=== PATIENT | female | born 1995 | race Two or more races ===

== ENCOUNTER 2021-09-19 11:34 | Emergency (ER) | payer MEDICAID ==
[2021-09-19] MEDS ORDERED: Sodium Chloride 0.9% 1,000 ML IV ONE (11:47)
[2021-09-19] MEDS ORDERED: Famotidine 20 MG/2 ML SDV IVPUSH ONE (11:49)
[2021-09-19] MEDS ORDERED: Alum Hydro/Mag Hydro/Simeth XS 15 ML, Lidocaine 2% 5 ML PO ONE ×2 (11:49)
[2021-09-19] MEDS ORDERED: Morphine 4 MG/ML VIAL IVPUSH ONE (12:37)
[2021-09-19] MEDS ORDERED: Ondansetron 4 MG/2 ML SDV IVPUSH ONE ×2 (12:37→15:57)
[2021-09-19 12:41] LABS: BLOOD UREA NITROGEN,BUN 8 mg/dL (7.0-18.0); CARBON DIOXIDE,CO2 22.4 mmol/L (21.0-32.0); CHLORIDE,CL 102 mmol/L (98-107); GLUCOSE RANDOM 98 mg/dL (74-106); SODIUM,NA 136 mmol/L (136-145)
[2021-09-19] MEDS ORDERED: Iopamidol 755 MG/ML 500 ML Multipack Bottle IVPUSH STA (13:15)
[2021-09-19 13:30] LABS: LIPASE 28748 U/L (73-393)
[2021-09-19] MEDS ORDERED: Piperacillin/Tazobactam 3.375 GM in Sodium Chloride 0.9% 50 ML IV ONE (14:22)
[2021-09-19] MEDS ORDERED: HYDROmorphone 1 MG/ML Syringe IVPUSH ONE (15:57)
== END 2021-09-19 16:30 ==
LOC: MW.ED 11:34
DX: K80.50 Calculus of bile duct without cholangitis or cholecystitis without obstruction (principal); K85.10 Biliary acute pancreatitis without necrosis or infection; Z20.822 Contact with and (suspected) exposure to COVID-19
CPT/HCPCS: 36415; 71275; 74177; 80053; 83605; 83690; 83735; 84484; 84703; 85025; 85610; 85730; 87635; 93005; 96361; 96365; 96375; 99285; A9270; J1170; J2270; J2405; J2543; J3490; J7030; Q9967; 93010; 99291; U0002

== ENCOUNTER 2022-08-29 06:52 | Inpatient (IN) | payer MEDICAID ==
[2022-08-29] MEDS ORDERED: Sodium Chloride 0.9% 10 ML Syringe FLUSH PRN (07:58)
[2022-08-29] MEDS ORDERED: Sodium Chloride 0.9% 2.5 ML Syringe FLUSH PRN (07:58)
[2022-08-29] MEDS ORDERED: Water For Irrigation,Sterile 1,000 ML Container IRR PRN (07:58)
[2022-08-29] MEDS ORDERED: Tranexamic Acid 1,000 MG in Sodium Chloride 0.9% 100 ML IV PRN (07:58)
[2022-08-29] MEDS ORDERED: Misoprostol 200 MCG Tab PO PRN (07:58)
[2022-08-29] MEDS ORDERED: Lidocaine 1% 50 ML MDV INJECT PRN (07:58)
[2022-08-29] MEDS ORDERED: Sodium Chloride 0.9% 20 ML SDV IV PRN (07:58)
[2022-08-29] MEDS ORDERED: Carboprost Tromethamine 250 MCG/1 mL Vial IM PRN (07:58)
[2022-08-29] MEDS ORDERED: Methylergonovine 0.2 MG/1 ML Amp IM PRN (07:58)
[2022-08-29] MEDS ORDERED: Lactated Ringers 1,000 ML IV SCH (08:00)
[2022-08-29] MEDS ORDERED: Oxytocin/0.9 % Sodium Chloride 30 UNIT/500 ML BAG IV SCH ×2 (08:00→09:00)
[2022-08-29 08:12] LABS: HEMATOCRIT 37.5 % (36.0-46.0); HEMOGLOBIN 12.9 g/dL (12.0-16.0); MEAN CORPUSCULAR HEMOGLOBIN 30.2 pg (27.0-32.0); MEAN CORPUSCULAR HGB CONC 34.4 g/dL (31.0-37.0); MEAN CORPUSCULAR VOLUME 87.8 fL (80.0-98.0); MEAN PLATELET VOLUME 11.1 fL (7.40-12.00); RED BLOOD CELL COUNT 4.27 M/uL (4.30-5.90); WHITE BLOOD CELL COUNT,WBC 16.08 K/uL (4.0-11.0)
[2022-08-29] MEDS ORDERED: Terbutaline 1 MG/ML SDV SUBCUT PRN (08:49)
[2022-08-29] MEDS ORDERED: ePHEDrine 50 MG/ML SDV IVPUSH PRN ×2 (08:52)
[2022-08-29] MEDS ORDERED: Phenylephrine HCl 0.5 MG/5 ML AMP IVPUSH PRN (08:52)
[2022-08-29] MEDS ORDERED: Ropivacaine HCl/PF 400 MG in Premix Bag 1 BAG EPIDUR SCH (09:00)
[2022-08-29] MEDS: Butorphanol 1 MG/ML SDV IVPUSH PRN ×2 (09:56→11:09)
[2022-08-29] MEDS ORDERED: Aluminum Hydroxide/Magnesium Hydroxide/Simethicone XS Susp 30 ML Cup PO PRN (15:04)
[2022-08-29] MEDS ORDERED: Measles, Mumps & Rubella Vaccine 0.5 ML SDV SUBCUT ONE (15:04)
[2022-08-29] MEDS ORDERED: oxyCODONE 5 MG Tab PO PRN (15:04)
[2022-08-29] MEDS ORDERED: Lanolin 100% Cream 7 GM Tube TOP PRN (15:04)
[2022-08-29] MEDS ORDERED: Famotidine 20 MG Tab PO PRN (15:04)
[2022-08-29] MEDS ORDERED: Acetaminophen 500 MG Tab PO PRN (15:04)
[2022-08-29] MEDS ORDERED: Docusate Sodium 100 MG Cap PO PRN (15:04)
[2022-08-29] MEDS ORDERED: Bisacodyl 10 MG Supp RECTAL PRN (15:04)
[2022-08-29] MEDS ORDERED: Oxytocin 10 Units/1 ML SDV IM PRN (15:04)
[2022-08-29] MEDS ORDERED: Ibuprofen 800 MG Tab PO PRN (15:04)
[2022-08-29] MEDS ORDERED: Simethicone 80 MG Tab.Chew PO PRN (15:04)
[2022-08-29] MEDS: Witch Hazel Medicated Pads 40/Jar TOP PRN (17:19)
[2022-08-29] MEDS: Benzocaine/Menthol 20%-0.5% Spray 78 GM Cannister TOP PRN (17:19)
[2022-08-30 03:35] LABS: HEMATOCRIT 29.7 % (36.0-46.0); HEMOGLOBIN 10.3 g/dL (12.0-16.0)
[2022-08-30] MEDS: Benzocaine/Menthol 20%-0.5% Spray 78 GM Cannister TOP PRN (09:28)
[2022-08-30] MEDS: Witch Hazel Medicated Pads 40/Jar TOP PRN (09:28)
== END 2022-08-30 18:49 | disposition home or self-care (01) | DRG 807 ==
LOC: MW.OBCHECK 06:52 → MW.OB 06:53 → MW.OBCHECK 08:00 → MW.OB 08:01 → OBSVTOIN 14:23 → MW.OB 18:50
PROVIDERS: ADMIT Obstetrics & Gynecology; ATTEND Obstetrics & Gynecology
PROC: 10E0XZZ Delivery of Products of Conception, External Approach (ICD-10-PCS; principal; 2022-08-29)
PROC: 10907ZC Drainage of Amniotic Fluid, Therapeutic from Products of Conception, Via Natural or Artificial Opening (ICD-10-PCS; 2022-08-29)
PROC: 0KQM0ZZ Repair Perineum Muscle, Open Approach (ICD-10-PCS; 2022-08-29)
DX: O41.03X0 Oligohydramnios, third trimester, not applicable or unspecified (principal); Z37.0 Single live birth; O70.1 Second degree perineal laceration during delivery; O48.0 Post-term pregnancy; O99.214 Obesity complicating childbirth; Z3A.40 40 weeks gestation of pregnancy; Z90.49 Acquired absence of other specified parts of digestive tract; Z98.890 Other specified postprocedural states
CPT/HCPCS: 36415; 59409; 85014; 85018; 85027; 86592; 86850; 86900; 86901; A9270-GY; J0595; J2001; J2590; J7120

== ENCOUNTER 2023-07-13 07:45 | Emergency (ER) | payer MEDICAID ==
[2023-07-13 08:13] LABS: BASOPHILS ABSOLUTE AUTO 0.08 K/uL (0.00-0.20); BASOPHILS PERCENT AUTO 0.7 % (0.0-1.0); EOSINOPHILS ABSOLUTE AUTO 0.34 K/uL (0.00-0.45); EOSINOPHILS PERCENT AUTO 2.8 % (0.0-6.0); HEMATOCRIT 42.7 % (37.0-47.0); HEMOGLOBIN 14.7 g/dL (12.0-16.0); IMMATURE GRAN ABSOLUTE AUTO 0.02 K/uL (0.00-0.05); IMMATURE GRAN PERCENT AUTO 0.2 % (0.0-0.4); LYMPHOCYTES ABSOLUTE AUTO 3.26 K/uL (1.00-4.80); LYMPHOCYTES PERCENT AUTO 27.2 % (24.0-44.0); MEAN CORPUSCULAR HEMOGLOBIN 29.9 pg (28.0-32.0); MEAN CORPUSCULAR HGB CONC 34.4 g/dL (32.0-36.0); MEAN PLATELET VOLUME 10.3 fL (9.4-12.3); MONOCYTES ABSOLUTE AUTO 0.53 K/uL (0.00-0.80); MONOCYTES PERCENT AUTO 4.4 % (0.0-8.0); NEUTROPHILS ABSOLUTE AUTO 7.77 K/uL (1.80-7.70); NEUTROPHILS PERCENT AUTO 64.7 % (41.0-71.0); PLATELET COUNT,PLT 317 K/uL (150-400); RED BLOOD CELL COUNT 4.91 M/uL (4.10-5.30)
[2023-07-13] MEDS: Ketorolac 30 MG/ML SDV IVPUSH ONE (08:27)
[2023-07-13 08:58] LABS: A/G RATIO 0.8 (0.9-1.6); ALBUMIN 3.3 g/dL (3.4-5.0); BILIRUBIN TOTAL 0.3 mg/dL (0.2-1.0); CALCIUM 8.6 mg/dL (8.5-10.1); CARBON DIOXIDE,CO2 25.1 mmol/L (21.0-32.0); CREATININE 0.8 mg/dL (0.6-1.0); EST CRCL DRUG DOSING (CG) 85.06 mL/min; POTASSIUM,K 4.2 mmol/L (3.5-5.1); PROTEIN TOTAL,TP 7.4 g/dL (6.4-8.2)
== END 2023-07-13 09:44 | disposition home or self-care (01) ==
LOC: MW.ED 07:45
DX: R07.89 Other chest pain (principal); Z90.49 Acquired absence of other specified parts of digestive tract
CPT/HCPCS: 36415; 71045; 80053; 84443; 84484; 85025; 85379; 93005; 96374; 99285; J1885; 93010; 99284